=== PATIENT | female | born 1995 | race African-American/Black ===

== ENCOUNTER 2018-12-06 09:24 | Day surgery (SDC) | payer OTHER ==
[2018-12-06 11:24] VITALS: BMI 40.4
[2018-12-06] MEDS ORDERED: Iron Sucrose Complex 500 MG in Sodium Chloride 0.9% 250 ML 250 ML IVPB SCH (11:45)
[2018-12-06] MEDS ORDERED: Acetaminophen 500 MG TAB PO PRN (11:45)
== END 2018-12-06 18:30 ==
LOC: L&D/OP 09:24
PROVIDERS: ATTEND Family Medicine
DX: O47.1 False labor at or after 37 completed weeks of gestation (principal); O99.013 Anemia complicating pregnancy, third trimester; D64.9 Anemia, unspecified; Z3A.39 39 weeks gestation of pregnancy
CPT/HCPCS: J1756; J7050

== ENCOUNTER 2018-12-10 05:27 | Inpatient (IN) | payer OTHER ==
[2018-12-10] MEDS ORDERED: Butorphanol Tartrate 1 MG/ML VIAL SLOW IVP PRN ×2 (06:16→19:30)
[2018-12-10] MEDS ORDERED: Promethazine HCl 25 MG/ML VIAL IM PRN ×2 (06:16→07:30)
[2018-12-10] MEDS ORDERED: hydrALAZINE 20 MG/ML VIAL SLOW IVP PRN ×2 (06:16→10:44)
[2018-12-10] MEDS ORDERED: Acetaminophen 500 MG TAB PO PRN (06:16)
[2018-12-10] MEDS ORDERED: Ondansetron PF 4 MG/2 ML Vial IVP PRN ×2 (06:16→07:30)
[2018-12-10 06:22] VITALS: BMI 40.6
[2018-12-10 06:25] LABS: Hemoglobin 10.2 g/dL (12.0-16.0); Mean Corpuscular HGB CONC 33.9 g/dL (32.0-36.0); Mean Corpuscular Hemoglobin 30.4 pg (27.0-31.0); Mean Corpuscular Volume 89.6 fL (78.0-98.0); Mean Platelet Volume 11.6 fL (7.4-10.4); Platelet Count 131 thou/uL (130-400); RBC Distribution Width 12.1 % (11.5-14.5); Red Blood Cell (RBC) Count 3.35 mill/uL (4.20-5.40); White Blood Cell (WBC) Count 13.7 thou/uL (4.8-10.8)
[2018-12-10] MEDS ORDERED: Bicitra 30 ML UDCUP PO SCH (06:30)
[2018-12-10] MEDS: Lactated Ringer's 1,000 ML IV SCH ×2 (06:32→07:32)
[2018-12-10 06:59] LABS: Syphilis Antibody Nonreactive (Nonreactive); Syphilis Antibody Index 0.05 S/CO (<1.00 Non-Reactive)
[2018-12-10] MEDS ORDERED: CEFAZOLIN 2 GM, Admixture Fee 1 EACH in Sodium Chloride 0.9% 100 ML IVPB SCH (07:00)
[2018-12-10] MEDS ORDERED: MORPHINE 5 MG/10 ML PF VIAL ONE (07:02)
[2018-12-10] MEDS ORDERED: Fentanyl 100 MCG/2 ML VIAL ONE (07:03)
[2018-12-10] MEDS ORDERED: Phenylephrine HCL 10 MG/ML VIAL ONE (07:03)
[2018-12-10] MEDS ORDERED: Ondansetron PF 4 MG/2 ML Vial ONE (07:03)
[2018-12-10] MEDS ORDERED: ePHEDrine/0.9% NaCl/PF SYRINGE 50 mg/10 ml ONE (07:03)
[2018-12-10] MEDS ORDERED: Ketorolac Tromethamine 30 MG/ML VIAL ONE (07:04)
[2018-12-10 07:05] LABS: HBSAg Index 0.37 S/CO (0-0.99); Hep B Surf Ag Non-Reactive S/CO (NonReactive)
[2018-12-10] MEDS ORDERED: Sodium Chloride 0.9% 100 ML ONE (07:11)
[2018-12-10] MEDS ORDERED: Sodium Chloride 0.9% 0 ML ONE (07:14)
[2018-12-10] MEDS ORDERED: Naloxone HCl 0.4 mg/ml Vial IV PRN (07:30)
[2018-12-10] MEDS ORDERED: Naloxone HCl 0.4 mg/ml Vial IVP PRN ×2 (07:30)
[2018-12-10] MEDS ORDERED: Communication Order-Pharmacy FS SCH (07:30)
[2018-12-10] MEDS ORDERED: Promethazine HCl 25 MG SUPP PR PRN (07:30)
--- NOTE | 2018-12-10 07:57 | HP ---
HISTORY OF PRESENT ILLNESS: This is a 23-year-old black female, G4, P3, at 39 weeks' gestation with EDC of 12/13/2018, being admitted for an elective repeat section. The patient has had 2 prior sections. Her initial delivery was a vaginal delivery. This was followed by a for failure to progress in [place], [place]. This was followed by a repeat . The patient is being admitted for an elective repeat. This course has only been complicated by anemia. The patient has a very difficult time complying with taking iron. She admits this freely. Her last hemoglobin was 29 several weeks prior. Several days prior, she received an iron infusion. We will plan to repeat the blood count prior to surgery. PAST MEDICAL HISTORY: None. PAST SURGICAL HISTORY: Spontaneous vaginal delivery x1, x2. FAMILY HISTORY: Unremarkable. SOCIAL HISTORY: She is . She lives with her three boys also. The patient is a smoker and does not drink. REVIEW OF SYSTEMS: As above. PHYSICAL EXAMINATION: VITAL SIGNS: Blood pressure 141/77. GENERAL: No acute distress. HEENT: Clear. HEART: Regular rate and rhythm. LUNGS: Clear. ABDOMEN: Soft, gravid. EXTREMITIES: No edema. LABORATORY DATA: GC/chlamydia negative, HIV negative, 1-hour GCT 119. Paps are normal. History of GC treated. Thyroid normal. RPR negative, nonreactive. Urine culture negative. Rubella immune. B positive blood type. ASSESSMENT: 1. Term . 2. Prior section x2. 3. Tobacco abuser. 4. Iron deficiency anemia, status post iron infusion. 5. History of GC treated during this , although spouse was negative. PLAN: 1. Routine L and D orders. 2. Routine anesthesia orders. 3. CBC prior to surgery. 4. Plan a routine repeat section. Job ID: [id number]
[2018-12-10] MEDS ORDERED: Atropine Sulfate 0.4 mg/1 ml Vial ONE (08:01)
[2018-12-10] MEDS ORDERED: Atropine Sulfate 1 mg/10 ml Syringe ONE (08:01)
[2018-12-10] MEDS ORDERED: Glycopyrrolate 0.2 MG/ML 5 ML SYRINGE ONE (08:01)
[2018-12-10] MEDS ORDERED: Oxytocin 10 UNITS/ML VIAL ONE ×2 (08:05→08:32)
--- NOTE | 2018-12-10 09:05 | PDOC.OPDEL ---
OB Operative/Delivery Note Delivery Dr/Surgeon: Dr. John Yanez Assist: Dr. Gianna Busch and Dr. Nadine Yanez Pre-Delivery Diagnosis: scheduled section Procedure/Post Delivery Dx: repeat low transverse CS Weeks gestation: 39 (39w4d) Anesthesia: spinal - Findings A Sex: female - Additional Findings/Plan Placenta delivered: manual removal findings: low transverse hysterotomy without extension Estimated blood loss: 600 Compilations/Other Findings: Pre-operative Diagnosis: 1) Term Intrauterine 2) Previous section Post-operative Diagnosis: 1) Term Intrauterine , delivered 2) Previous section x2 3) Extensive adhesions Anesthesia: spinal Indications: The patient is a 23 y/o @ 39w4d who presents for repeat scheduled section. Procedure: After risks, benefits, and alternatives were explained to the patient , she gave informed consent. Pre-operative antibiotics included cefazolin 2g IV. The patient was taken to the operative room and spinal anesthesia was initiated. She was placed in the supine position with a left tilt and prepped and draped in sterile fashion. A Pfannenstiel incision was made with a scalpel and carried down to the level of the fascia which was sharply nicked. The fascial cut was extended bilaterally with Gary scissors. The inferior and superior edges of the fascia were elevated with Lor clamps and the underlying rectus muscles were sharply and bluntly dissected free. There were extensive adhesions that were taken down with gary scissors and bovie. The recti were divided digitally and retracted sharply and manually. The peritoneum was entered and retracted manually. Bladder blade was placed. There was a large adhesion to the lower uterine segment that was tied off with 2-0 chromic suture and then cauterized with bovie in between for hemostasis. A low transverse score was made with the scalpel and the uterus was entered in the midline bluntly. Clear fluid was seen. The hysterotomy was entended manually in the cephalocaudal fashion. The was noted to be vertex and easily delivered by fundal pressure. Mouth and nares were bulb suctioned. Cord clamped and cut. Grossly normal female infant was handed to waiting nurse. Cord blood obtained. Placenta was manually extracted, found to be intact with 3 vessel cord and discarded. The uterus was externalized and the endometrium was curetted with a dry lap. The bladder blade was replaced and the hysterotomy was closed with a running locking 1-monocryl suture. The abdomen was suctioned free of clots. The uterus was internalized and following this, there were several areas that were oozing and so floseal was used over the hysterotomy for better hemostasis. The peritoneum was unable to be closed due to adhesions and scarring. The fascia was closed with a running, non-locking 0-vicryl suture. The subcutaneous tissue was found to have a few bleeding areas that were cauterized with the bovie. The skin was approximated with cintia and a pressure dressing was placed. All counts were correct. The patient tolerated the procedure well and was taken to the recovery room in stable condition. Time of delivery: 0816 on 12/10/18 EBL: 600mL Complications: none Specimens: Cord blood sent to lab for blood type Findings: Grossly normal female . Grossly normal placenta with 3 vessel cord discarded. Drains: Conner to gravity draining clear urine. Post delivery plan: routine recovery
[2018-12-10] MEDS ORDERED: Acetaminophen 325 MG TAB PO PRN (10:44)
[2018-12-10] MEDS ORDERED: Methylergonovine 0.2 MG/ML VIAL IM PRN (10:44)
[2018-12-10] MEDS ORDERED: Bisacodyl 10 MG SUPP PR PRN (10:44)
[2018-12-10] MEDS ORDERED: Misoprostol 200 MCG TAB PR PRN (10:44)
[2018-12-10] MEDS ORDERED: Adacel (T-DAP) 0.5 ML SYRINGE IM ONE (10:44)
[2018-12-10] MEDS ORDERED: Prenatal Vitamin 1 TAB PO SCH (11:00)
[2018-12-10] MEDS ORDERED: Docusate Calcium (SURFAK) 240 MG CAP PO SCH (11:00)
[2018-12-10] MEDS ORDERED: Ferrous Sulfate 325 MG TAB PO SCH (11:00)
[2018-12-10] MEDS: Ferrous Sulfate 325 MG TAB PO SCH (16:55)
[2018-12-10] MEDS: diphenhydrAMINE 50 MG/ML VIAL IVP PRN (18:34)
[2018-12-10] MEDS: Ketorolac Tromethamine 30 MG/ML VIAL IVP PRN (20:07)
[2018-12-10] MEDS: Docusate Calcium (SURFAK) 240 MG CAP PO SCH (20:08)
[2018-12-11] MEDS: HYDROcodone/Acetaminophen 5/325 mg Tablet PO PRN ×2 (00:21→06:01)
[2018-12-11] MEDS: diphenhydrAMINE 50 MG/ML VIAL IVP PRN (00:25)
[2018-12-11] MEDS: Lactated Ringer's 1,000 ML IV SCH (00:29)
[2018-12-11] MEDS: Ketorolac Tromethamine 30 MG/ML VIAL IVP PRN ×2 (02:11→08:09)
[2018-12-11 06:25] LABS: Hemoglobin 5.5 g/dL (12.0-16.0); Mean Corpuscular HGB CONC 34.2 g/dL (32.0-36.0); Mean Corpuscular Hemoglobin 31.3 pg (27.0-31.0); Mean Corpuscular Volume 91.5 fL (78.0-98.0); Mean Platelet Volume 11.1 fL (7.4-10.4); Platelet Count 109 thou/uL (130-400); RBC Distribution Width 12.5 % (11.5-14.5); Red Blood Cell (RBC) Count 1.75 mill/uL (4.20-5.40); White Blood Cell (WBC) Count 14.3 thou/uL (4.8-10.8)
[2018-12-11 06:44] LABS: #Basophils 0.1 thou/uL (0.0-0.2); #Eosinphils 0.1 thou/uL (0.0-0.7); #Lymphocytes 1.6 thou/uL (1.20-3.40); #Monocytes 1.2 thou/uL (0.11-0.59); #Neutrophils 11.3 thou/uL (1.40-6.50); %Basophils 0.5 % (0.0-1.0); %Eosinophils 0.9 % (0.0-10.0); %Lymphocytes 10.9 % (21.0-51.0); %Monocytes 8.6 % (0.0-10.0); Large Platelets SLIGHT; MDiff Complete? YES; Platelet Morphology Comment Appears Adequate
[2018-12-11] MEDS ORDERED: Sodium Chloride 0.9% 10 ML ONE (08:06)
[2018-12-11] MEDS: Ferrous Sulfate 325 MG TAB PO SCH ×2 (08:09→17:15)
[2018-12-11] MEDS: Prenatal Vitamin 1 TAB PO SCH (08:09)
[2018-12-11] MEDS: Docusate Calcium (SURFAK) 240 MG CAP PO SCH ×2 (08:09→22:00)
[2018-12-11] MEDS ORDERED: HYDROcodone/Acetaminophen 7.5/325 mg Tablet PO PRN (08:35)
[2018-12-11] MEDS: HYDROcodone/Acetaminophen 7.5/325 mg Tablet PO PRN ×2 (12:53→17:15)
--- NOTE | 2018-12-11 14:25 | PRG ---
DATE OF SERVICE: 12/11/2018 SUBJECTIVE: The patient complains of moderate abdominal pain. She has not voided since last night. Her morning hemoglobin was also noted to be 5.5. No complaints of any chest pain, nausea, or vomiting. She does have a headache. She is also quite weak upon sitting up. OBJECTIVE: VITAL SIGNS: Temperature 98.7, pulse 92, respirations 16, pulse ox 100%, and blood pressure 112/57. HEART: Regular rate and rhythm. LUNGS: Clear. No rales noted. ABDOMEN: With diffuse lower abdominal tenderness. Questionable distended bladder. EXTREMITIES: No edema. LABORATORY DATA: H and H this morning are 5.5 and 16.1. ASSESSMENT: 1. Postoperative day #1, status post repeat low-transverse section. 2. Prior section x2. 3. Tobacco abuse. 4. Iron deficiency anemia, status post iron transfusion on Saturday. 5. Noncompliance. Despite numerous pleas to take her iron, she never took any iron throughout her entire . The patient has been very apologetic. PLAN: 1. Transfuse 1 unit of packed red blood cells. Recheck CBC following transfusion. May need a 2nd unit. 2. Continue iron supplementation. 3. We will monitor closely. 4. In and out cath. Job ID: [id number]
[2018-12-11 17:38] LABS: #Basophils 0.1 thou/uL (0.0-0.2); #Eosinphils 0.2 thou/uL (0.0-0.7); #Lymphocytes 1.9 thou/uL (1.20-3.40); #Monocytes 1.5 thou/uL (0.11-0.59); #Neutrophils 10.6 thou/uL (1.40-6.50); %Basophils 0.4 % (0.0-1.0); %Eosinophils 1.7 % (0.0-10.0); %Lymphocytes 13.3 % (21.0-51.0); %Monocytes 10.4 % (0.0-10.0); %Neutrophils 74.2 % (42.0-75.0); Hemoglobin 7.6 g/dL (12.0-16.0); Mean Corpuscular HGB CONC 33.4 g/dL (32.0-36.0); Mean Corpuscular Hemoglobin 30.3 pg (27.0-31.0); Mean Corpuscular Volume 90.8 fL (78.0-98.0); Mean Platelet Volume 10.8 fL (7.4-10.4); Platelet Count 114 thou/uL (130-400); Red Blood Cell (RBC) Count 2.51 mill/uL (4.20-5.40); White Blood Cell (WBC) Count 14.2 thou/uL (4.8-10.8)
[2018-12-11] MEDS ORDERED: Simethicone Chewable 80 MG TAB PO PRN (17:55)
[2018-12-11] MEDS: Sodium Chloride 0.9% 1,000 ML IV SCH (18:15)
--- NOTE | 2018-12-11 21:59 | PRG ---
DATE OF SERVICE: 12/11/2018 SUBJECTIVE: The patient is feeling much better than this morning. She has received 2 units of packed red blood cells. Her headache has resolved at this time. She has had several small bowel movements, but still complains of marked gas pains. OBJECTIVE: VITAL SIGNS: Temperature 98.7, pulse 119, respirations 22, pulse ox 97, blood pressure 132/73. HEART: Tachycardic. LUNGS: Clear. No rales noted. ABDOMEN: Soft, somewhat distended. EXTREMITIES: No edema. LABORATORY DATA: White count down from 14.3 to 14.2, H and H are 7.6 and 22.8. ASSESSMENT: 1. Postop day #1, status post repeat low transverse section. 2. Iron deficiency anemia. 3. Severe anemia, status post 2 units of packed red blood cells today. PLAN: 1. Continue IV fluids at 75 mL/h normal saline. 2. Increase ambulation. 3. Minimize pain medications. 4. Recheck CBC and BMP in the a.m. Job ID: [id number]
[2018-12-11] MEDS: Ibuprofen 800 MG TAB PO SCH (22:00)
[2018-12-12 01:33] LABS: #Basophils 0.1 thou/uL (0.0-0.2); #Eosinphils 0.2 thou/uL (0.0-0.7); #Monocytes 1.4 thou/uL (0.11-0.59); #Neutrophils 9.1 thou/uL (1.40-6.50); %Basophils 0.5 % (0.0-1.0); %Eosinophils 1.8 % (0.0-10.0); %Lymphocytes 15.8 % (21.0-51.0); %Monocytes 11.2 % (0.0-10.0); %Neutrophils 70.7 % (42.0-75.0); Hemoglobin 6.7 g/dL (12.0-16.0); Mean Corpuscular HGB CONC 33.3 g/dL (32.0-36.0); Mean Corpuscular Hemoglobin 29.7 pg (27.0-31.0); Mean Corpuscular Volume 89.2 fL (78.0-98.0); Mean Platelet Volume 9.8 fL (7.4-10.4); Platelet Count 105 thou/uL (130-400); RBC Distribution Width 13.2 % (11.5-14.5); Red Blood Cell (RBC) Count 2.27 mill/uL (4.20-5.40); White Blood Cell (WBC) Count 12.9 thou/uL (4.8-10.8)
--- NOTE | 2018-12-12 01:37 | PDOC.EVN ---
Event Note - Event Note Event Note: OBYOANNAN OnCall: [address] Edith Boogie on the phone just now This patient underwent CS yesterday (SAT) with QBL 600. Hgb dropped from 10 to 5 and has recieved 2 units PRBCs. Afebrile. Pulse 110s...BPs stable. As drop in hgb cannot be explained by QBL, I have recommended a pelvic CT to eval for possible hysterotomy/broad ligament hematoma. Dr Boogie has ordered. Await CT result...follow Hgbs. If hematoma present, need to ensure hgbs stable.
[2018-12-12 01:55] LABS: ALT (SGPT) Less than 7 U/L (8-55); AST (SGOT) 16 U/L (5-34); Albumin 2.7 g/dL (3.5-5.0); Alkaline Phosphatase 118 U/L (40-150); Anion Gap 12 mmol/L (10-20); BUN (Urea Nitrogen) 5 mg/dL (7.0-18.7); Bilirubin, Total 0.4 mg/dL (0.2-1.2); Calc. Creatinine Clearance 237 mL/min (70-130); Calcium 8.4 mg/dL (7.8-10.44); Carbon Dioxide 21 mmol/L (22-29); Chloride 109 mmol/L (98-107); Estimated GFR-MDRD Greater than 90; Globulin 2.6 g/dL (2.4-3.5); Glucose 92 mg/dL (70-105); Potassium 3.5 mmol/L (3.5-5.1); Protein, Total 5.3 g/dL (6.0-8.3); Sodium 138 mmol/L (136-145)
[2018-12-12] MEDS ORDERED: Morphine 2 MG/ML SYRINGE SLOW IVP PRN (02:58)
[2018-12-12] MEDS: Morphine 4 MG/ML VIAL SLOW IVP PRN ×2 (04:46→07:43)
[2018-12-12 05:40] LABS: Mean Corpuscular HGB CONC 33.1 g/dL (32.0-36.0); Mean Corpuscular Hemoglobin 29.9 pg (27.0-31.0); Mean Corpuscular Volume 90.3 fL (78.0-98.0); Mean Platelet Volume 9.6 fL (7.4-10.4); Platelet Count 101 thou/uL (130-400); RBC Distribution Width 13.6 % (11.5-14.5); Red Blood Cell (RBC) Count 2.33 mill/uL (4.20-5.40); White Blood Cell (WBC) Count 12.6 thou/uL (4.8-10.8)
[2018-12-12 05:58] LABS: Bacteria/HPF None Seen HPF (None Seen); Bilirubin Negative (Negative); Blood, Urine 3+ (Negative); Clarity Clear (Clear); Glucose, Urine (Dipstick) Normal (Negative); Leukocyte 500 Leu/uL (Negative); Nitrite Negative (Negative); Protein, Urine (Dipstick) 10 mg/dL (Neg-Trace); RBC/HPF Greater than 50 HPF (0-3); Urobilinogen Normal mg/dL (Less than 2); WBC/HPF 21-50 HPF (0-3)
[2018-12-12] MEDS: Ibuprofen 800 MG TAB PO SCH ×4 (06:49→23:36)
--- NOTE | 2018-12-12 07:51 | CT ---
PRELIMINARY REPORT/[facility]/EMERGENCY AFTER HOURS PROCEDURE: EXAM: CT Abdomen and Pelvis Without and With Contrast EXAM DATE/TIME: 12/12/2018 1:48 AM CLINICAL HISTORY: 23 years old, female; Localized; Prior surgery; Surgery date: Post-operative (0-2 days); Patient HX: Inpt. Eval for possible bleed. PT had a surgery on the 12/10/18. PT C/O abdominal pain, more severe to her right TECHNIQUE: Imaging protocol: Axial computed tomography images of the abdomen and pelvis without and with intrave nous contrast. COMPARISON: No relevant prior studies available. FINDINGS: Pleural space: There is a trace left pleural effusion. Opacities in the lung bases are likely atelect asis. Liver: Normal. No mass. Gallbladder and bile ducts: Normal. No calcified stones. No ductal dilation. Pancreas: Normal. No ductal dilation. Spleen: The spleen is prominent measuring 12.9 x 8.4 x 9.3 cm. Adrenals: Normal. No mass. Kidneys and ureters: Normal. No hydronephrosis. Stomach and bowel: Normal. No obstruction. Appendix: The appendix is not identified. Intraperitoneal space: There is a small amount of free fluid in the abdomen and pelvis. There is a tr lissa amount of free air. Vasculature: Normal. No abdominal aortic aneurysm. Lymph nodes: Normal. No enlarged lymph nodes. Bladder: There is a 10.7 x 6.4 cm collection of soft tissue density material between the urinary blad joe and abdominal wall. Reproductive: The uterus is enlarged. There are small pockets of gas and possible blood clots in the lower uterine segment. Bones/joints: There are mild degenerative changes in the spine. Soft tissues: There is infiltration of fat in the anterior abdominal wall. Theare are skin cintia in the anterior abdominal wall. Bilateral rectus muscle thickening is consistent with edema. IMPRESSION: 1. Hematoma between the urinary bladder and abdominal wall. 2. Small amount of free fluid that likely contains blood. 3. Surgical changes. 4. Trace amount of free air consistent with recent surgery. 5. Additional findings as above. Thank you for allowing us to participate in the care of your patient. Dictated and Authenticated by: Omega Joe MD 12/12/2018 2:35 AM Central Time ([place] & [place]) FINAL REPORT CT ABDOMEN AND PELVIS WITH AND WITHOUT IV CONTRAST PERFORMED ON AN EMERGENCY BASIS: Date: 12/12/18 Time: 0152 hours HISTORY: Abdominal pain and bleeding. Recent . IMPRESSION: Findings agree with the preliminary report by Dr. Joe from [facility]. Between the urinary bladder a nd uterus is a heterogeneous fluid collection favored to represent a postoperative hematoma. Intra-ab dominal fluid and air consistent with recent surgery. Atelectasis at the lung bases. POS: [facility]
[2018-12-12] MEDS: Sodium Chloride 0.9% 1,000 ML IV SCH (07:55)
[2018-12-12] MEDS: HYDROcodone/Acetaminophen 7.5/325 mg Tablet PO PRN ×3 (09:31→23:45)
[2018-12-12] MEDS: Docusate Calcium (SURFAK) 240 MG CAP PO SCH ×2 (09:32→23:37)
[2018-12-12] MEDS: Ferrous Sulfate 325 MG TAB PO SCH ×2 (09:33→17:42)
[2018-12-12] MEDS: Prenatal Vitamin 1 TAB PO SCH (09:33)
[2018-12-12 10:45] LABS: Hemoglobin 7.4 g/dL (12.0-16.0); Mean Corpuscular HGB CONC 34.2 g/dL (32.0-36.0); Mean Corpuscular Hemoglobin 30.7 pg (27.0-31.0); Mean Corpuscular Volume 89.7 fL (78.0-98.0); Platelet Count 115 thou/uL (130-400); RBC Distribution Width 13.7 % (11.5-14.5); Red Blood Cell (RBC) Count 2.41 mill/uL (4.20-5.40); White Blood Cell (WBC) Count 12.5 thou/uL (4.8-10.8)
--- NOTE | 2018-12-12 13:14 | PRG ---
DATE OF SERVICE: 12/12/2018 SUBJECTIVE: Last night, the patient was complaining of increasing abdominal pain. CT scan of the abdomen and pelvis was performed. Preliminary reading showed a 10 cm hematoma anterior to the bladder. The patient was given IV morphine following this and she has been sleeping well. This morning, she is feeling somewhat better, but still in marked pain. She rates it a 4/10. Dr. Meyer was also consulted and agreed with management. OBJECTIVE: VITAL SIGNS: Temperature 98.9, pulse 109, O2 saturation 98, and blood pressure 121/67. HEART: Regular rate and rhythm. LUNGS: Clear. ABDOMEN: Soft with suprapubic tenderness. LABORATORY DATA: White count continues to decrease from 14.2 to 12.9 to 12.6, hemoglobin did go up from 6.7 to 7.0, hematocrit 20.2 to 21.0. ASSESSMENT: 1. Postop day #2 status post repeat low transverse section. This was her third section. 2. Abdominal pain with CT showing pelvic hematoma measuring 10 cm. 3. Severe anemia, has received 2 units of packed red blood cells thus far. The patient's hemoglobin has gone up from 6.7 to 7. 4. Iron deficiency anemia. PLAN: 1. Continue with IV fluids. 2. IV morphine p.r.n. pain. 3. Continue to monitor serial H and H. If her next hemoglobin continues to rise, then we will stop the blood draws. 4. I hopefully expect the patient to continue to improve. Her pelvic pain probably will continue over the next week while this hematoma is being reabsorbed. 5. Appreciate Dr. Meyer. 6. Await final report from radiology. Job ID: [id number]
[2018-12-12] MEDS ORDERED: ISOVUE-370 76%-LOCM 1 ML ONE (15:41)
[2018-12-13] MEDS: Sodium Chloride 0.9% 1,000 ML IV SCH ×2 (02:50→20:08)
[2018-12-13] MEDS: HYDROcodone/Acetaminophen 7.5/325 mg Tablet PO PRN ×3 (05:29→18:46)
[2018-12-13 06:27] LABS: #Eosinphils 0.2 thou/uL (0.0-0.7); #Lymphocytes 2.2 thou/uL (1.20-3.40); #Monocytes 0.8 thou/uL (0.11-0.59); #Neutrophils 7.6 thou/uL (1.40-6.50); %Basophils 0.2 % (0.0-1.0); %Eosinophils 2.1 % (0.0-10.0); %Lymphocytes 20.6 % (21.0-51.0); %Monocytes 7.7 % (0.0-10.0); %Neutrophils 69.4 % (42.0-75.0); Hemoglobin 7.8 g/dL (12.0-16.0); Mean Corpuscular HGB CONC 33.7 g/dL (32.0-36.0); Mean Corpuscular Volume 91.8 fL (78.0-98.0); Mean Platelet Volume 9.8 fL (7.4-10.4); Platelet Count 139 thou/uL (130-400); RBC Distribution Width 14.2 % (11.5-14.5); Red Blood Cell (RBC) Count 2.52 mill/uL (4.20-5.40); White Blood Cell (WBC) Count 10.9 thou/uL (4.8-10.8)
[2018-12-13] MEDS: Docusate Calcium (SURFAK) 240 MG CAP PO SCH ×2 (08:59→22:02)
[2018-12-13] MEDS: Ferrous Sulfate 325 MG TAB PO SCH ×2 (08:59→17:00)
[2018-12-13] MEDS: Prenatal Vitamin 1 TAB PO SCH (08:59)
[2018-12-13] MEDS ORDERED: Sodium Chloride 0.9% 10 ML ONE ×2 (10:36→17:09)
--- NOTE | 2018-12-13 10:41 | PRG ---
DATE OF SERVICE: 12/13/2018 SUBJECTIVE: The patient is ambulating somewhat more. She did well yesterday. This morning, she has been complaining of a headache. She does receive [place]. OBJECTIVE: VITAL SIGNS: Temperature 98.9, pulse 99, respirations 20, pulse ox 97%, and blood pressure 142/96. GENERAL: Complaining of a headache this morning. HEART: Regular rate and rhythm. LUNGS: Clear. ABDOMEN: Soft. Decreased tenderness over the past several days. LABORATORY DATA: White count continues to decrease to 10.9, hemoglobin of 7.4 to 7.8, hematocrit 21.6 to 23.1, and platelet 139. ASSESSMENT: 1. Postoperative day #3, status post repeat low transverse section. 2. Abdominal pain with a suprapubic 10-cm hematoma. 3. Iron deficiency anemia with severe anemia, status post transfusion of 2 units packed red blood cells. PLAN: 1. Can increase activity. 2. El[place] for pain. 3. Continue to monitor H and H. 4. Continue to increase activity. Job ID: [id number]
[2018-12-13] MEDS ORDERED: Ondansetron ODT 4 MG TAB PO PRN (11:01)
[2018-12-13] MEDS: Fioricet 325/50/40 mg Tablet PO PRN ×2 (13:10→22:01)
[2018-12-13] MEDS ORDERED: Lactated Ringer's 1,000 ML IV SCH (17:15)
[2018-12-13] MEDS: Ibuprofen 800 MG TAB PO SCH ×2 (18:48→22:01)
[2018-12-13] MEDS: Morphine 2 MG/ML SYRINGE SLOW IVP SCH ×2 (20:54→20:55)
[2018-12-14] MEDS: HYDROcodone/Acetaminophen 7.5/325 mg Tablet PO PRN (03:59)
[2018-12-14 04:14] VITALS: BP 149/90; TEMP 98.3
[2018-12-14] MEDS: Sodium Chloride 0.9% 1,000 ML IV SCH (05:16)
[2018-12-14] MEDS: Morphine 2 MG/ML SYRINGE SLOW IVP SCH ×2 (05:17→06:25)
[2018-12-14] MEDS: Ibuprofen 800 MG TAB PO SCH (06:14)
[2018-12-14] MEDS: Ferrous Sulfate 325 MG TAB PO SCH (09:28)
[2018-12-14] MEDS: Prenatal Vitamin 1 TAB PO SCH (09:29)
[2018-12-14] MEDS: Docusate Calcium (SURFAK) 240 MG CAP PO SCH (09:29)
--- NOTE | 2018-12-15 15:44 | DIS ---
DATE OF ADMISSION: 12/10/2018 DATE OF DISCHARGE: 12/14/2018 DISCHARGE DIAGNOSES: 1. Postop day #4, status post repeat low-transverse section. 2. History of 2 prior section. 3. Abdominal pain with a postop 10-cm suprapubic hematoma. 4. Iron deficiency anemia. 5. Severe anemia. 6. Status post transfusion of 2 units of packed red blood cells. BRIEF HISTORY: This is a 23-year-old white female G4, P3, at 39 weeks' gestation, admitted for an elective repeat section. The patient has had 2 prior sections. Her course was complicated by anemia. The patient just simply could not take oral iron. She was very apologetic. Four days prior to admission, the patient did receive an iron infusion. Her hematocrit throughout her was 29 and prior to surgery was 30. HOSPITAL COURSE: The patient underwent a repeat low-transverse section. The patient did have marked scar tissue. However, hemostasis was adequate. The patient did well. There was minimal bleeding. Postop, she had minimal vaginal bleeding. However, she had increasing abdominal pain and her hemoglobin on postop day #1 dropped to 5.5. A [address] scan of her abdomen and pelvis was done, which revealed a 10-cm suprapubic hematoma. Over several days, the patient slowly improved. Her abdominal pain did improve. She did have a headache, which also improved. She will be discharged today and follow up in the office in 2 to 3 days. Her final white count was 10.9 with H and H of 7.8 and 23.1. Job ID: [id number]
== END 2018-12-14 12:35 | disposition home or self-care (01) | DRG 787 ==
LOC: L&D 05:27 → 3SE 11:46
PROVIDERS: ADMIT Family Medicine; ATTEND Family Medicine
PROC: 10D00Z1 Extraction of Products of Conception, Low, Open Approach (ICD-10-PCS; principal; 2018-12-10)
PROC: 30233N1 Transfusion of Nonautologous Red Blood Cells into Peripheral Vein, Percutaneous Approach (ICD-10-PCS; 2018-12-10)
DX: O34.211 Maternal care for low transverse scar from previous cesarean delivery (principal); O71.7 Obstetric hematoma of pelvis; O72.1 Other immediate postpartum hemorrhage; O99.02 Anemia complicating childbirth; N73.6 Female pelvic peritoneal adhesions (postinfective); O99.63 Diseases of the digestive system complicating the puerperium; O99.334 Smoking (tobacco) complicating childbirth; F17.200 Nicotine dependence, unspecified, uncomplicated; D50.9 Iron deficiency anemia, unspecified; Z3A.39 39 weeks gestation of pregnancy; Z37.0 Single live birth
CPT/HCPCS: 36415; 36416; 36430; 51702; 74178; 81001; 85025; 85027; 86780; 86850; 86900; 86901; 87340; J0461; J0690; J1200; J1885; J2270; J2274; J2370; J2405; J2550; J2590; J3010; J3490; P9016; Q0162; Q9966

== ENCOUNTER 2019-10-27 11:09 | Emergency (ER) | payer OTHER ==
[2019-10-28 13:57] LABS: SARS-CoV-2 MS2 Positive; SARS-CoV-2 N Gene Negative; SARS-CoV-2 S Gene Negative; SARS-CoV-2 orf1ab Negative
== END 2019-10-27 11:54 | disposition home or self-care (01) ==
LOC: ERS 11:09
DX: J02.9 Acute pharyngitis, unspecified (principal); F17.200 Nicotine dependence, unspecified, uncomplicated; Z20.828 Contact with and (suspected) exposure to other viral communicable diseases
CPT/HCPCS: 87635; 99283; U0003

== ENCOUNTER 2020-01-22 08:08 | Emergency (ER) | payer OTHER ==
[2020-01-22 09:30] LABS: #Basophils 0.1 thou/uL (0.0-0.2); #Eosinphils 0.3 thou/uL (0.0-0.7); #Lymphocytes 1.9 thou/uL (1.20-3.40); #Monocytes 0.5 thou/uL (0.11-0.59); #Neutrophils 3.8 thou/uL (1.40-6.50); %Basophils 1.2 % (0.0-1.0); %Eosinophils 4.3 % (0.0-10.0); %Lymphocytes 28.8 % (21.0-51.0); %Monocytes 7.9 % (0.0-10.0); %Neutrophils 57.9 % (42.0-75.0); Hemoglobin 14.2 g/dL (12.0-16.0); Mean Corpuscular HGB CONC 33.8 g/dL (32.0-36.0); Mean Corpuscular Hemoglobin 33.4 pg (27.0-31.0); Mean Platelet Volume 9.5 fL (7.4-10.4); Platelet Count 218 thou/uL (130-400); RBC Distribution Width 11.5 % (11.5-14.5); Red Blood Cell (RBC) Count 4.24 mill/uL (4.20-5.40); White Blood Cell (WBC) Count 6.6 thou/uL (4.8-10.8)
[2020-01-22 09:44] LABS: Bilirubin Negative (Negative); Blood, Urine Negative (Negative); Clarity Extra Turbid (Clear); Glucose, Urine (Dipstick) Normal (Negative); Ketone, Urine Negative (Negative); Leukocyte Negative Leu/uL (Negative); Nitrite Negative (Negative); Protein, Urine (Dipstick) Negative (Neg-Trace); Specific Gravity, Urine 1.019 (1.002-1.036); Urobilinogen Normal mg/dL (Less than 2)
[2020-01-22 09:50] LABS: Pregnancy Test - Urine (BHCG) Negative (Negative); Pregu Control Background? CLEAR/WHITE (CLR/WHITE); Pregu Control Bar Appear? YES (CONTROL BAR); Specific Gravity 1.019 (1.002-1.036)
[2020-01-22 09:54] LABS: ALT (SGPT) 11 U/L (8-55); AST (SGOT) 12 U/L (5-34); Albumin 4.1 g/dL (3.5-5.0); Alkaline Phosphatase 41 U/L (40-110); Anion Gap 10 mmol/L (10-20); BUN (Urea Nitrogen) 10 mg/dL (7.0-18.7); Bilirubin, Total 0.7 mg/dL (0.2-1.2); Calc. Creatinine Clearance 0 mL/min (70-130); Calcium 8.7 mg/dL (7.8-10.44); Carbon Dioxide 25 mmol/L (22-29); Chloride 107 mmol/L (98-107); Estimated GFR-MDRD Greater than 90; Globulin 2.7 g/dL (2.4-3.5); Glucose 83 mg/dL (70-105); Lipase 20 U/L (8-78); Potassium 3.8 mmol/L (3.5-5.1); Protein, Total 6.8 g/dL (6.0-8.3); Sodium 138 mmol/L (136-145)
--- NOTE | 2020-01-22 11:00 | ULT ---
EXAM: Pelvic ultrasound HISTORY: Pelvic pain COMPARISON: None TECHNIQUE: Multiple grayscale and color Doppler images were obtained in a transabdominal and transvag inal pelvic ultrasound. Spectral analysis of the Doppler waveforms of the ovaries were performed. FINDINGS: CERVIX: No evidence of nabothian cysts. UTERUS: Normal in size without focal abnormality. ENDOMETRIAL STRIPE: 4 mm. A trace amount of free fluid is seen in the pelvis. RIGHT OVARY: Normal flow without focal mass. LEFT OVARY: Normal flow without focal mass. 2.8 cm dominant follicle IMPRESSION: No significant pelvic abnormality
[2020-01-22] MEDS ORDERED: Ketorolac Tromethamine 30 MG/ML VIAL ONE (11:15)
== END 2020-01-22 11:47 | disposition home or self-care (01) ==
LOC: ERS 08:08
DX: K57.92 Diverticulitis of intestine, part unspecified, without perforation or abscess without bleeding (principal); F17.200 Nicotine dependence, unspecified, uncomplicated
CPT/HCPCS: 36415; 76856; 80053; 81003; 81025; 83690; 85025; 96372; J0500; J1885